=== PATIENT | male | born 1995 | race Caucasian/White ===

== ENCOUNTER 2021-03-19 16:17 | Emergency (ER) | payer OTHER, SELFPAY ==
[2021-03-19] MEDS ORDERED: Lidocaine 1% w/Epinephrine 1:100K 20 ML VIAL ONE (16:50)
[2021-03-19] MEDS ORDERED: Triple Antibiotic Oint 1 GM Packet ONE (17:10)
== END 2021-03-19 17:15 | disposition home or self-care (01) ==
LOC: MADERS 16:17
DX: S61.512A Laceration without foreign body of left wrist, initial encounter (principal); W45.8XXA Other foreign body or object entering through skin, initial encounter
CPT/HCPCS: 12002

== ENCOUNTER 2022-06-11 23:18 | Emergency (ER) | payer SELFPAY ==
[2022-06-12 00:07] LABS: #Basophils 0.1 thou/uL (0.0-0.2); #Eosinphils 0.2 thou/uL (0.0-0.7); #Monocytes 0.8 thou/uL (0.11-0.59); #Neutrophils 5.2 thou/uL (1.40-6.50); %Basophils 1.1 % (0.0-1.0); %Eosinophils 2.4 % (0.0-10.0); %Lymphocytes 24.3 % (21.0-51.0); %Monocytes 10.1 % (0.0-10.0); %Neutrophils 62.2 % (42.0-75.0); Hemoglobin 12.5 g/dL (14.0-18.0); Mean Corpuscular Hemoglobin 29.3 pg (27.0-31.0); Mean Corpuscular Volume 88.8 fl (78.0-98.0); Mean Platelet Volume 6.2 fL (7.4-10.4); Platelet Count 351 10x3/uL (130-400); Red Blood Cell (RBC) Count 4.28 mill/uL (4.70-6.10); White Blood Cell (WBC) Count 8.3 10x3/uL (4.8-10.8)
[2022-06-12 00:24] LABS: ALT (SGPT) 26 U/L (8-55); AST (SGOT) 24 U/L (5-34); Acetaminophen Less than 10.0 mcg/mL (10.0-30.0); Alcohol Less than 10 mg/dL (Less than 10); Alkaline Phosphatase 76 U/L (40-110); Anion Gap 15 mmol/L (10-20); BUN (Urea Nitrogen) 24 mg/dL (8.9-20.6); Bilirubin, Total 0.5 mg/dL (0.2-1.2); Calc. Creatinine Clearance 0 mL/min (70-130); Carbon Dioxide 26 mmol/L (22-29); Chloride 102 mmol/L (98-107); Estimated GFR 116; Glucose 98 mg/dL (70-105); Potassium 4.2 mmol/L (3.5-5.1); Salicylate Less than 8.0 mg/dL (15.0-30.0); Sodium 139 mmol/L (136-145)
[2022-06-12 00:37] LABS: Bilirubin Negative (Negative); Blood, Urine Negative (Negative); Clarity Clear (Clear); Glucose, Urine (Dipstick) Negative (Negative); Ketone, Urine Negative (Negative); Leukocyte Negative (Negative); Nitrite Negative (Negative); Protein, Urine (Dipstick) Negative (Neg-Trace); pH, Urine 6.5 (5.0-9.0)
[2022-06-12 00:50] LABS: Amphetamine Not Detected (NotDetected); Barbiturates Screen Not Detected (NotDetected); Benzodiazepine Screen Not Detected (NotDetected); Cocaine Metabolite Screen Not Detected (NotDetected); Medtox Control Line Valid? VALID (VALID); Methadone Not Detected (NotDetected); Methamphetamine Not Detected (NotDetected); Opiate Screen Not Detected (NotDetected); Oxycodone Screen Not Detected (NotDetected); Phencyclidine (PCP) Not Detected (NotDetected); THC/Cannabinoid Screen Not Detected (NotDetected); Tricyclic Screen Not Detected (NotDetected)
[2022-06-12 04:15] LABS: SARS-CoV-2 NAA Rapid Test Not Detected (NotDetected)
[2022-06-12] MEDS ORDERED: Sulfameth/Trimethoprim DS 800-160mg TAB ONE (04:32)
== END 2022-06-12 09:30 | disposition home or self-care (01) ==
LOC: MADERS 23:18
DX: S51.812A Laceration without foreign body of left forearm, initial encounter (principal); S91.302A Unspecified open wound, left foot, initial encounter; F29 Unspecified psychosis not due to a substance or known physiological condition; X78.9XXA Intentional self-harm by unspecified sharp object, initial encounter; Z20.822 Contact with and (suspected) exposure to COVID-19
CPT/HCPCS: 80053; 80143; 80179; 80306; 80307; 81003; 84443; 85025; 93005; U0002

== ENCOUNTER 2024-07-25 16:06 | Emergency (ER) | payer SELFPAY ==
[2024-07-25 17:11] LABS: ALT (SGPT) 23 U/L (Less than 45); AST (SGOT) 31 U/L (11-34); Albumin 4.5 g/dL (3.1-4.5); Alcohol Less than 10.0 mg/dL (Less than 10); Alkaline Phosphatase 55 U/L (40-110); Anion Gap 12 mmol/L (10-20); BUN (Urea Nitrogen) 11 mg/dL (8.9-20.6); Bilirubin, Total 0.3 mg/dL (0.3-1.2); CK (CPK) 309 U/L (30-200); Calc. Creatinine Clearance 0 mL/min (70-130); Calcium 9.3 mg/dL (7.8-10.44); Carbon Dioxide 23 mmol/L (22-29); Chloride 105 mmol/L (98-107); Estimated GFR 78; Globulin 3.3 g/dL (2.4-3.5); Glucose 109 mg/dL (70-105); Protein, Total 7.8 g/dL (6.0-8.3); Sodium 136 mmol/L (136-145)
[2024-07-25 17:12] LABS: #Basophils 0.1 thou/uL (0.0-0.2); #Eosinophils 0.1 thou/uL (0.0-0.7); #Lymphocytes 2.3 thou/uL (1.20-3.40); #Monocytes 0.7 thou/uL (0.11-0.59); %Eosinophils 0.7 % (0.0-10.0); %Lymphocytes 28.2 % (21.0-51.0); %Monocytes 8.2 % (0.0-10.0); %Neutrophils 61.9 % (42.0-75.0); Hematocrit 31.6 % (42.0-52.0); Hemoglobin 9.3 g/dL (14.0-18.0); Mean Corpuscular HGB CONC 29.3 g/dL (32.0-36.0); Mean Corpuscular Hemoglobin 20.3 pg (27.0-31.0); Mean Corpuscular Volume 69.3 fl (78.0-98.0); Mean Platelet Volume 6.9 fL (7.4-10.4); Platelet Count 528 10x3/uL (130-400); RBC Distribution Width 18.3 % (11.5-14.5); Red Blood Cell (RBC) Count 4.56 mill/uL (4.70-6.10); White Blood Cell (WBC) Count 8.1 10x3/uL (4.8-10.8)
[2024-07-25 17:23] LABS: Bilirubin Negative (Negative); Blood, Urine Negative (Negative); Clarity Clear (Clear); Glucose, Urine (Dipstick) Negative (Negative); Ketone, Urine Negative (Negative); Leukocyte Small (Negative); Nitrite Negative (Negative); Protein, Urine (Dipstick) Negative (Neg-Trace); Urobilinogen 0.2 mg/dL (Less than 2); pH, Urine 6.5 (5.0-9.0)
[2024-07-25 17:27] LABS: Amphetamine Not Detected (NotDetected); Barbiturates Screen Not Detected (NotDetected); Benzodiazepine Screen Not Detected (NotDetected); Cocaine Metabolite Screen Detected (NotDetected); Methadone Not Detected (NotDetected); Methamphetamine Not Detected (NotDetected); Opiate Screen Not Detected (NotDetected); Oxycodone Screen Not Detected (NotDetected); Phencyclidine (PCP) Not Detected (NotDetected); THC/Cannabinoid Screen Not Detected (NotDetected); Tricyclic Screen Not Detected (NotDetected)
[2024-07-25 17:28] LABS: Acetaminophen Less than 10 mcg/mL (Less than 10); Alcohol Less than 10.0 mg/dL (Less than 10); Salicylate Less than 8.0 mg/dL (Less than 8.0)
[2024-07-25 17:31] LABS: Bacteria/HPF Rare-Few HPF (None Seen); CAUTI Indications for Culture Alt mental st,lethar; Mucous/LPF 1+ LPF (<2+); RBC/HPF 0-3 HPF (0-3); Squamous Epithelial 0-3 HPF (0-3)
[2024-07-25 17:32] LABS: Urine Culture Reflex No No
[2024-07-25 18:31] LABS: Anisocytosis MODERATE=16-30 cells (100X) (0-5/hpf); Hypochromia MODERATE=16-30 cells (100X) (0-5/hpf); Microcytosis MARKED = >30 cells (100X) (0-5/hpf); Poikilocytosis SLIGHT = 6-15 cells (100X) (0-5/hpf); Polychromasia SLIGHT = 2-3 cells (100X) (0-2/hpf)
[2024-07-25 18:32] LABS: Ovalocytes SLIGHT = 2-5 cells (100X) (0-1/hpf); Platelet Adequacy Comment Appears Increased
== END 2024-07-25 18:59 | disposition home or self-care (01) ==
LOC: MADERS 16:06
DX: S61.512A Laceration without foreign body of left wrist, initial encounter (principal); X78.8XXA Intentional self-harm by other sharp object, initial encounter
CPT/HCPCS: 80053; 80306; 80307; 81001; 82550; 85025; 93005